=== PATIENT | female | born 1970 | race Caucasian/White ===

== ENCOUNTER 2019-06-27 13:21 | Inpatient (IN) | payer OTHER ==
[~2019-06-27] VITALS: Ht 167.6 cm; Wt 83.9 kg
[2019-06-27] MEDS ORDERED: SODIUM CHLORIDE 0.9% 1,000ML IVBOLUS ONE ×2 (14:00→15:30)
[2019-06-27 14:42] LABS: MEAN CORPUSCULAR HEMOGLOBIN 28.8 pg (27.0-34.8); MEAN CORPUSCULAR HGB CONC 32.8 g/dL (32.4-35.8); MEAN CORPUSCULAR VOLUME 87.7 fL (80-100); MEAN PLATELET VOLUME 7.9 fL (7.4-10.4); PLATELET COUNT 331 x10^3/uL (130-400); RED BLOOD COUNT 3.43 x10^6/uL (3.82-5.3); RED CELL DISTRIBUTION WIDTH 14.8 % (9.6-15.2)
[2019-06-27 14:54] LABS: ALBUMIN 2.5 g/dL (3.4-5.0); ANION GAP 6 mmol/L (5-15); CALCIUM 7.8 mg/dL (8.5-10.1); CHLORIDE 106 mmol/L (98-107)
[2019-06-27 14:57] LABS: ALANINE AMINOTRANSFERASE 31 U/L (12-78); ALKALINE PHOSPHATASE 52 U/L (45-117); BILIRUBIN,TOTAL 0.7 mg/dL (0.2-1.0); CREATININE 0.47 mg/dL (0.55-1.02); TOTAL PROTEIN 6.6 g/dL (6.4-8.2)
[2019-06-27] MEDS ORDERED: CEFTRIAXONE PMX 1GM/50ML 50 ML IV ONE (15:00)
[2019-06-27 15:18] LABS: BASOPHILS # (AUTO) 0.01 x10^3/uL (0-0.1); BASOPHILS % (AUTO) 0 % (0-1); EOSINOPHILS # (AUTO) 0.04 x10^3/uL (0-0.4); EOSINOPHILS % (AUTO) 1 % (1-7); LYMPHOCYTES # (AUTO) 0.85 x10^3/uL (1-3.4); LYMPHOCYTES % (AUTO) 29 % (22-44); MD SCAN; MONOCYTES % (AUTO) 17 % (2-9); NEUTROPHILS # (AUTO) 1.51 x10^3/uL (1.8-6.8); NEUTROPHILS % (AUTO) 52 % (42-75)
[2019-06-27] MEDS ORDERED: POTASSIUM CHLORIDE 40 MEQ in SODIUM CHLORIDE 0.9% 500 ML IV ONE (15:30)
--- NOTE | 2019-06-27 15:42 | NUR ---
Pt here for generalized fatigue with acute dizzyness at home. Per pt she has not felt well at home and at work and felt like she passed out today. Per pt did and he took her to bed and when pt woke up she didnt know where she was. Pt denies any truama. Pt reports some sob with exertion but no chest pain. Pt connected to monitors and call light in reach. Awaiting further orders.
--- NOTE | 2019-06-27 15:44 | NUR ---
pt medicated per emar at this time.
[2019-06-27] MEDS ORDERED: OMNIPAQUE 350 MG/ML, 100ML BOTTLE ONE (16:05)
[2019-06-27] MEDS ORDERED: CEFTRIAXONE PMX 1GM/50ML 50 ML ONE (16:55)
--- NOTE | 2019-06-27 17:30 | NUR ---
BREAK NOTE: PT. IS RESTING WITHOUT CONCERNS. THE HOSPITALIST IS AT THE BEDSIDE. PT.'S IV POTASSIUM IS INFUSING ON THE PUMP. SIDERAILS REMAIN UP X 2 WITH THE CALL LIGHT IN PLACE.
[2019-06-27] MEDS ORDERED: SODIUM CHLORIDE 0.9% 1,000 ML IV SCH (17:35)
[2019-06-27] MEDS ORDERED: PROMETHAZINE 25 MG/ML, 1ML IM PRN (18:00)
[2019-06-27] MEDS ORDERED: ACETAMINOPHEN 325 MG TABLET PO PRN (18:00)
[2019-06-27] MEDS ORDERED: DEXTROSE 4 GM TAB.CHEW PO PRN (18:00)
[2019-06-27] MEDS ORDERED: DEXTROSE 50%, 50ML SYRINGE IVPush PRN (18:00)
[2019-06-27] MEDS ORDERED: SODIUM CHLORIDE 0.9% 500 ML IV ONE (18:00)
[2019-06-27] MEDS ORDERED: SODIUM CHLORIDE 0.9% 500 ML IV SCH ×2 (18:00)
[2019-06-27] MEDS ORDERED: ONDANSETRON 2MG/ML, 2ML IVPush PRN (18:00)
[2019-06-27 18:36] LABS: TROPONIN I < 0.015 ng/mL (0.000-0.045)
[2019-06-27] MEDS: SODIUM CHLORIDE FLUSH 10ML SYR IVF SCH (20:27)
[2019-06-27] MEDS: POTASSIUM CHLORIDE 20 MEQ TAB.ER.PRT PO SCH (20:27)
[2019-06-27] MEDS: ENOXAPARIN 40 MG/0.4 ML SQ SCH (20:27)
[2019-06-27] MEDS: DOXYCYCLINE 100MG TABLET PO SCH (20:27)
[2019-06-27 20:39] VITALS: BP 108/75
[2019-06-27 22:23] LABS: ANION GAP 5 mmol/L (5-15); CALCIUM 7.5 mg/dL (8.5-10.1); CHLORIDE 112 mmol/L (98-107); CREATININE 0.46 mg/dL (0.55-1.02)
[2019-06-27 22:24] LABS: TROPONIN I < 0.015 ng/mL (0.000-0.045)
[2019-06-27 22:59] LABS: RAPID INFLUENZA A Negative (Negative); RAPID INFLUENZA B Negative (Negative)
[2019-06-28 00:48] VITALS: BP 106/73
[2019-06-28 07:13] LABS: BASOPHILS # (AUTO) 0.01 x10^3/uL (0-0.1); BASOPHILS % (AUTO) 0 % (0-1); EOSINOPHILS # (AUTO) 0.08 x10^3/uL (0-0.4); EOSINOPHILS % (AUTO) 2 % (1-7); LYMPHOCYTES # (AUTO) 0.81 x10^3/uL (1-3.4); LYMPHOCYTES % (AUTO) 20 % (22-44); MD NO; MEAN CORPUSCULAR HEMOGLOBIN 28.9 pg (27.0-34.8); MEAN CORPUSCULAR VOLUME 87.7 fL (80-100); MEAN PLATELET VOLUME 8.3 fL (7.4-10.4); MONOCYTES % (AUTO) 13 % (2-9); NEUTROPHILS # (AUTO) 2.59 x10^3/uL (1.8-6.8); NEUTROPHILS % (AUTO) 65 % (42-75); PLATELET COUNT 307 x10^3/uL (130-400); RED BLOOD COUNT 3.13 x10^6/uL (3.82-5.3); RED CELL DISTRIBUTION WIDTH 14.2 % (9.6-15.2)
[2019-06-28 07:19] LABS: CHLORIDE 111 mmol/L (98-107)
[2019-06-28 07:26] LABS: ALANINE AMINOTRANSFERASE 25 U/L (12-78); ALBUMIN 2.2 g/dL (3.4-5.0); ALKALINE PHOSPHATASE 45 U/L (45-117); ANION GAP 5 mmol/L (5-15); BILIRUBIN,TOTAL 0.3 mg/dL (0.2-1.0); CALCIUM 7.5 mg/dL (8.5-10.1); CREATININE 0.35 mg/dL (0.55-1.02); TOTAL PROTEIN 5.9 g/dL (6.4-8.2)
[2019-06-28] MEDS: POTASSIUM CHLORIDE 20 MEQ TAB.ER.PRT PO SCH ×2 (08:44→16:49)
[2019-06-28] MEDS: DOXYCYCLINE 100MG TABLET PO SCH ×2 (08:44→20:47)
[2019-06-28] MEDS: SODIUM CHLORIDE FLUSH 10ML SYR IVF SCH ×2 (08:45→20:48)
[2019-06-28 10:16] VITALS: BP_SYST 106; BP_SYST 113; BP_SYST 119; BP_DIAS 70; BP_DIAS 73; BP_DIAS 77
[2019-06-28 14:27] VITALS: BP_SYST 107; BP_SYST 108; BP_DIAS 72; BP_DIAS 74
[2019-06-28] MEDS ORDERED: CEFTRIAXONE PMX 1GM/50ML 50 ML IV SCH (15:00)
[2019-06-28 17:06] VITALS: BP 181/79
[2019-06-28] MEDS ORDERED: SODIUM CHLORIDE 0.9% 1,000 ML IV SCH (17:35)
[2019-06-28 19:25] VITALS: BP 123/74
[2019-06-28] MEDS: ENOXAPARIN 40 MG/0.4 ML SQ SCH (20:48)
[2019-06-29 06:20] LABS: BASOPHILS % (AUTO) 0 % (0-1); EOSINOPHILS # (AUTO) 0.08 x10^3/uL (0-0.4); EOSINOPHILS % (AUTO) 2 % (1-7); LYMPHOCYTES # (AUTO) 0.93 x10^3/uL (1-3.4); LYMPHOCYTES % (AUTO) 21 % (22-44); MD NO; MEAN CORPUSCULAR HEMOGLOBIN 28.3 pg (27.0-34.8); MEAN CORPUSCULAR HGB CONC 32.1 g/dL (32.4-35.8); MEAN PLATELET VOLUME 7.8 fL (7.4-10.4); MONOCYTES # (AUTO) 0.48 x10^3/uL (0.2-0.8); MONOCYTES % (AUTO) 11 % (2-9); NEUTROPHILS # (AUTO) 2.97 x10^3/uL (1.8-6.8); NEUTROPHILS % (AUTO) 67 % (42-75); PLATELET COUNT 380 x10^3/uL (130-400); RED BLOOD COUNT 3.36 x10^6/uL (3.82-5.3); RED CELL DISTRIBUTION WIDTH 14.4 % (9.6-15.2)
[2019-06-29 06:27] LABS: CHLORIDE 110 mmol/L (98-107)
[2019-06-29 06:33] LABS: ALANINE AMINOTRANSFERASE 24 U/L (12-78); ALBUMIN 2.4 g/dL (3.4-5.0); ALKALINE PHOSPHATASE 51 U/L (45-117); ANION GAP 5 mmol/L (5-15); BILIRUBIN,TOTAL 0.4 mg/dL (0.2-1.0); CALCIUM 7.7 mg/dL (8.5-10.1); CREATININE 0.39 mg/dL (0.55-1.02); TOTAL PROTEIN 6.3 g/dL (6.4-8.2)
[2019-06-29] MEDS ORDERED: POTA20TA6 PO (08:37)
[2019-06-29] MEDS ORDERED: MAGN400T26 PO (08:37)
[2019-06-29] MEDS ORDERED: AMOX1TAB12 PO (08:37)
[2019-06-29] MEDS ORDERED: DOXY100T PO (08:38)
[2019-06-29] MEDS: POTASSIUM CHLORIDE 20 MEQ TAB.ER.PRT PO SCH ×2 (08:54→09:27)
[2019-06-29] MEDS: DOXYCYCLINE 100MG TABLET PO SCH (08:55)
[2019-06-29] MEDS: SODIUM CHLORIDE FLUSH 10ML SYR IVF SCH (08:55)
[2019-06-29] MEDS ORDERED: AMOXICILLIN/CLAV 875-125MG TABLET PO SCH (09:00)
[2019-06-29 09:27] VITALS: BP 119/84
== END 2019-06-29 09:53 | disposition home or self-care (01) | DRG 195 ==
LOC: ED 15:25 → EDIP 17:04 → 4WST 18:40
PROVIDERS: ADMIT Internal Medicine; ATTEND Internal Medicine
DX: J18.9 Pneumonia, unspecified organism (principal); E16.2 Hypoglycemia, unspecified; E86.0 Dehydration; E86.1 Hypovolemia; E87.6 Hypokalemia; I95.9 Hypotension, unspecified; D64.9 Anemia, unspecified; Z98.84 Bariatric surgery status
CPT/HCPCS: 36415; 71045; 71275; 80048; 80053; 82533; 83605; 83735; 84145; 84484; 85025; 87040; 87400; 93005; 93306; 93880; 96365; 96367; G0378; J0696; J1650; J3480; Q9967; J7030; J7040

== ENCOUNTER 2020-04-02 09:03 | Inpatient (IN) | payer OTHER ==
[~2020-04-02] VITALS: Ht 167.6 cm; Wt 72.6 kg
[~2020-04-02 09:03] MED LIST: AMOX1TAB12 PO; DOXY100T PO; MAGN400T26 PO; POTA20TA6 PO
--- NOTE | 2020-04-02 09:30 | NUR ---
VENDING MANAGER: EKG DONE IN TRIAGE
--- NOTE | 2020-04-02 09:43 | NUR ---
COMPUTER NETWORKING INSTRUCTOR ADJUNCT: PT TO ROOM FROM LOBBY
--- NOTE | 2020-04-02 10:00 | NUR ---
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 PT SAYS IT WENT AWAY AND CAME BACK TWICE. AND IT RADIATED TO HER BACK AND DOWN HER RIGHT ARM. PT HAD HX OF LOW MAGNESIUM. EKG SHOWED PVCs. PT CONNECTED TO MONITORING EQUIPMENT. MD IS BEDSIDE FOR ASSESSMENT
[2020-04-02] MEDS ORDERED: SODIUM CHLORIDE FLUSH 10ML SYR IVF ONE (10:30)
[2020-04-02 10:31] LABS: BASOPHILS % (AUTO) 0 % (0-1); EOSINOPHILS % (AUTO) 0 % (1-7); LYMPHOCYTES % (AUTO) 14 % (22-44); MEAN CORPUSCULAR HEMOGLOBIN 29.6 pg (27.0-34.8); MEAN CORPUSCULAR HGB CONC 32.5 g/dL (32.4-35.8); MEAN PLATELET VOLUME 7.4 fL (7.4-10.4); MONOCYTES % (AUTO) 6 % (2-9); NEUTROPHILS % (AUTO) 79 % (42-75); PLATELET COUNT 479 x10^3/uL (130-400); RED BLOOD COUNT 4.06 x10^6/uL (3.82-5.3); RED CELL DISTRIBUTION WIDTH 14.9 % (9.6-15.2)
[2020-04-02 10:38] LABS: ALBUMIN 3.8 g/dL (3.4-5.0); ANION GAP 5 mmol/L (5-15); CALCIUM 8.7 mg/dL (8.5-10.1); CHLORIDE 107 mmol/L (98-107); CREATININE 0.52 mg/dL (0.55-1.02)
[2020-04-02 10:49] LABS: MD NO
--- NOTE | 2020-04-02 11:04 | NUR ---
IV STARTED. PT TAKEN TO CT AT THIS TIME
[2020-04-02] MEDS ORDERED: OMNIPAQUE 350 MG/ML, 75ML BOTTLE ONE (11:17)
--- NOTE | 2020-04-02 12:05 | NUR ---
PT RESTING IN [facility]. NAD. VSS.
[2020-04-02] MEDS ORDERED: SODIUM CHLORIDE FLUSH 10ML SYR IVF PRN (12:30)
[2020-04-02] MEDS ORDERED: morphine SULFATE 10 MG/ML, 1ML IVPush PRN (13:00)
[2020-04-02] MEDS ORDERED: NITROGLYCERIN 0.4 MG BOTTLE (25 TABS) SL PRN (13:00)
[2020-04-02] MEDS ORDERED: POLYETHYLENE GLYCOL 17 GM PACKET PO PRN (13:00)
[2020-04-02] MEDS ORDERED: ENOXAPARIN 40 MG/0.4 ML SQ SCH (13:00)
[2020-04-02] MEDS ORDERED: ONDANSETRON ODT 4 MG PO PRN (13:00)
[2020-04-02] MEDS ORDERED: ONDANSETRON 2MG/ML, 2ML IVPush PRN (13:00)
[2020-04-02] MEDS ORDERED: LABETALOL 5MG/ML, 20ML IVPush PRN (13:30)
[2020-04-02 13:50] VITALS: BP 139/80
[2020-04-02] MEDS ORDERED: HEPARIN 5,000 UNITS/ML, 1ML IV ONE (18:00)
[2020-04-02] MEDS ORDERED: HEPARIN 25,000 UNITS/250ML PMX 250 ML IV PRN (18:00)
[2020-04-02 19:41] VITALS: BP 143/93
[2020-04-02] MEDS: ATORVASTATIN 40 MG TABLET PO SCH (21:06)
[2020-04-02] MEDS: ACETAMINOPHEN 325 MG TABLET PO PRN (21:06)
[2020-04-03 00:36] VITALS: BP 117/79
[2020-04-03] MEDS: HEPARIN 5,000 UNITS/ML, 1ML IV PRN ×3 (00:57→14:31)
[2020-04-03] MEDS: ACETAMINOPHEN 325 MG TABLET PO PRN ×4 (01:00→22:35)
[2020-04-03 06:28] LABS: ALBUMIN 3.1 g/dL (3.4-5.0); ANION GAP 7 mmol/L (5-15); CALCIUM 8.5 mg/dL (8.5-10.1); CHLORIDE 106 mmol/L (98-107)
[2020-04-03 06:33] LABS: ALANINE AMINOTRANSFERASE 23 U/L (12-78); ALKALINE PHOSPHATASE 65 U/L (45-117); BILIRUBIN,TOTAL 0.9 mg/dL (0.2-1.0); CHOL/HDL RATIO 2.1; CHOLESTEROL, TOTAL 184 mg/dL (140-239); CREATININE 0.51 mg/dL (0.55-1.02); HDL CHOL % 47 % (28-40); HDL CHOLESTEROL (DIRECT) 86 mg/dL (40-60); LDL CHOLESTEROL,CALCULATED 81 mg/dL (54-169); LDL/HDL RATIO 0.9 (0.5-3.0); TOTAL PROTEIN 6.7 g/dL (6.4-8.2); TRIGLYCERIDES 85 mg/dL (50-200); VLDL CHOLESTEROL 17 mg/dL (0-25)
[2020-04-03] MEDS: ASPIRIN 81 MG TABLET EC PO SCH (06:33)
[2020-04-03 06:36] LABS: BASOPHILS % (AUTO) 1 % (0-1); EOSINOPHILS % (AUTO) 2 % (1-7); LYMPHOCYTES % (AUTO) 20 % (22-44); MEAN CORPUSCULAR HEMOGLOBIN 29.7 pg (27.0-34.8); MEAN CORPUSCULAR HGB CONC 32.5 g/dL (32.4-35.8); MEAN PLATELET VOLUME 7.9 fL (7.4-10.4); MONOCYTES % (AUTO) 7 % (2-9); NEUTROPHILS % (AUTO) 71 % (42-75); PLATELET COUNT 430 x10^3/uL (130-400); RED BLOOD COUNT 3.67 x10^6/uL (3.82-5.3); RED CELL DISTRIBUTION WIDTH 14.8 % (9.6-15.2)
[2020-04-03 06:50] VITALS: BP 114/78
[2020-04-03 06:50] LABS: MD NO
[2020-04-03] MEDS: SENNA/DOCUSATE TABLET PO SCH (07:23)
[2020-04-03] MEDS ORDERED: POTASSIUM CHLORIDE 20 MEQ in SODIUM CHLORIDE 0.9% 250 ML IV ONE (08:30)
[2020-04-03 12:28] VITALS: BP 126/88
[2020-04-03] MEDS ORDERED: NITROGLYCERIN 30 MCG/ML, 20ML VIAL ONE (14:45)
[2020-04-03] MEDS ORDERED: LIDOCAINE-MPF 1%, 5ML ONE (14:45)
[2020-04-03] MEDS ORDERED: MIDAZOLAM 1 MG/ML, 2ML ONE ×2 (14:45→15:05)
[2020-04-03] MEDS ORDERED: VERAPAMIL 2.5 MG/ML, 2ML ONE (14:45)
[2020-04-03] MEDS ORDERED: FENTANYL PF 100 MCG/2ML ONE ×2 (14:45→15:05)
[2020-04-03] MEDS ORDERED: HEPARIN 1,000 UNITS/ML, 10ML ONE (14:45)
[2020-04-03] MEDS ORDERED: BIVALIRUDIN 250 MG ONE (15:05)
[2020-04-03] MEDS ORDERED: DIPHENHYDRAMINE 50 MG/ML, 1ML ONE (15:08)
[2020-04-03] MEDS ORDERED: SODIUM CHLORIDE 0.9% 1,000 ML IV SCH (16:00)
[2020-04-03 19:22] VITALS: BP 107/73
[2020-04-03] MEDS: ATORVASTATIN 40 MG TABLET PO SCH (20:59)
[2020-04-04 01:54] VITALS: BP_SYST 145; BP_SYST 98; BP_DIAS 57; BP_DIAS 85
[2020-04-04 05:35] LABS: ALANINE AMINOTRANSFERASE 21 U/L (12-78); ANION GAP 9 mmol/L (5-15); CALCIUM 8.3 mg/dL (8.5-10.1); CHLORIDE 106 mmol/L (98-107); CREATININE 0.46 mg/dL (0.55-1.02)
[2020-04-04 05:37] LABS: ALKALINE PHOSPHATASE 59 U/L (45-117); BILIRUBIN,TOTAL 0.7 mg/dL (0.2-1.0); TOTAL PROTEIN 6.3 g/dL (6.4-8.2)
[2020-04-04 05:40] LABS: BASOPHILS % (AUTO) 1 % (0-1); EOSINOPHILS % (AUTO) 3 % (1-7); LYMPHOCYTES % (AUTO) 22 % (22-44); MEAN CORPUSCULAR HEMOGLOBIN 29.8 pg (27.0-34.8); MEAN CORPUSCULAR HGB CONC 32.4 g/dL (32.4-35.8); MEAN PLATELET VOLUME 7.6 fL (7.4-10.4); MONOCYTES % (AUTO) 8 % (2-9); NEUTROPHILS % (AUTO) 66 % (42-75); PLATELET COUNT 387 x10^3/uL (130-400); RED BLOOD COUNT 3.48 x10^6/uL (3.82-5.3); RED CELL DISTRIBUTION WIDTH 14.8 % (9.6-15.2)
[2020-04-04 05:52] LABS: MD NO
[2020-04-04] MEDS: ASPIRIN 81 MG TABLET EC PO SCH (07:32)
[2020-04-04] MEDS ORDERED: POTASSIUM CHLORIDE 20 MEQ TAB.ER.PRT PO SCH (08:00)
[2020-04-04 08:19] VITALS: BP 112/76
[2020-04-04] MEDS: SENNA/DOCUSATE TABLET PO SCH (08:47)
[2020-04-04] MEDS: ACETAMINOPHEN 325 MG TABLET PO PRN (08:47)
[2020-04-04] MEDS ORDERED: ATOR40TA78 PO (12:27)
[2020-04-04] MEDS ORDERED: POTA20TA6 PO (12:27)
[2020-04-04] MEDS ORDERED: ASPI81TA45 PO (12:27)
== END 2020-04-04 14:15 | disposition home or self-care (01) | DRG 280 ==
LOC: ED 10:48 → EDIP 12:25 → 5SO 13:13 → DCLOUNGE 04-04 13:51
PROVIDERS: ADMIT Hospitalist; ATTEND Family Medicine
PROC: 4A023N7 Measurement of Cardiac Sampling and Pressure, Left Heart, Percutaneous Approach (ICD-10-PCS; principal; 2020-04-03)
PROC: B2111ZZ Fluoroscopy of Multiple Coronary Arteries using Low Osmolar Contrast (ICD-10-PCS; 2020-04-03)
PROC: B2151ZZ Fluoroscopy of Left Heart using Low Osmolar Contrast (ICD-10-PCS; 2020-04-03)
DX: I21.9 Acute myocardial infarction, unspecified (principal); I50.21 Acute systolic (congestive) heart failure; R91.1 Solitary pulmonary nodule; I11.0 Hypertensive heart disease with heart failure; F10.10 Alcohol abuse, uncomplicated; E78.5 Hyperlipidemia, unspecified; D47.3 Essential (hemorrhagic) thrombocythemia; Z98.84 Bariatric surgery status; Z98.51 Tubal ligation status; Z80.9 Family history of malignant neoplasm, unspecified; Z83.3 Family history of diabetes mellitus; Z91.011 Allergy to milk products
CPT/HCPCS: 36415; 71045; 71275; 80048; 80053; 80061; 82040; 83036; 83735; 83880; 84484; 85025; 85379; 85520; 93005; 93306; 93458; 99156; C1769; C1894; G0378; J0583; J1644; J1650; J2250; J3010; J3480; Q9967; J1200; J7030; J7050

== ENCOUNTER → 2020-05-17 | Outpatient (CLI) | payer MEDICAID ==
[~2020-05-17] MED LIST changes: +ASPI81TA45 PO; +ATOR40TA78 PO
== END | disposition home or self-care (01) ==
LOC: CVU 08:57
PROVIDERS: ATTEND Internal Medicine Cardiovascular Disease
DX: I08.8 Other rheumatic multiple valve diseases (principal); I21.4 Non-ST elevation (NSTEMI) myocardial infarction
CPT/HCPCS: 93306